=== PATIENT | male | born 1980 | race American Indian/Alaskan Native ===

== ENCOUNTER 2018-04-30 21:30 | Emergency (ER) | payer MEDICAID ==
[2018-04-30 21:37] VITALS: BMI 26.9
[2018-04-30 21:44] VITALS: BP 138/88; PULSE 58; RESP 18; TEMP 98; O2SAT 99
[2018-04-30] MEDS ORDERED: Penicillin G Benzathine 2.4 Mill Unit/4 ml Syr IM ONE (22:02)
--- NOTE | 2018-04-30 22:07 | ED PDOC ---
Arrival/HPI - General Chief Complaint: Medical Clearance Time Seen by Provider: 04/30/18 21:37 Historian: Patient - History of Present Illness Narrative History of Present Illness (Text): 04/30/18 22:04 37 y/o male, no significant pmh, nkda, c/o exposure to syphillis and lip rash x 1 week. Pt. stated that he received a call from the exgirlfriend today, telling him that she has syphilis which he had unprotected sex with him, he would like to be treated for syphilis. Pt. stated that he has painful lip lesion started today as well, no fever or chills, no night sweat, no dizziness, no change in vision, no palpitation, no change in vision, no other medical or psychological complaints. Past Medical History - Provider Review Nursing Documentation Reviewed: Yes - Psychiatric Hx Substance Use: No - Anesthesia Hx Anesthesia: No Family/Social History - Physician Review Nursing Documentation Reviewed: Yes Family/Social History: Unknown Family HX Smoking Status: Never Smoked Hx Alcohol Use: No Hx Substance Use: No Allergies/Home Meds Allergies/Adverse Reactions: Allergies No Known Allergies Allergy (Verified 04/30/18 21:37) Review of Systems - Review of Systems Constitutional: absent: Fatigue, Fevers Eyes: absent: Vision Changes ENT: absent: Hearing Changes Respiratory: absent: SOB, Cough Cardiovascular: absent: Chest Pain Gastrointestinal: absent: Abdominal Pain, Nausea, Vomiting Genitourinary Male: absent: Dysuria, Frequency Musculoskeletal: absent: Arthralgias Skin: Rash, Skin Lesions. absent: Pruritis, Laceration, Abscess, Ulcer, Cellulitis Physical Exam Vital Signs Reviewed: Yes Vital Signs Temp Pulse Resp BP Pulse Ox 04/30/18 21:43 98 F 58 L 18 138/88 99 Temperature: Afebrile Blood Pressure: Normal Pulse: Bradycardic Respiratory Rate: Normal Appearance: Positive for: Well-Appearing, Non-Toxic, Comfortable Pain Distress: Mild Mental Status: Positive for: Alert and Oriented X 3 - Systems Exam Head: Present: Atraumatic, Normocephalic Pupils: Present: PERRL Extroacular Muscles: Present: EOMI Conjunctiva: Present: Normal Mouth: Present: Moist Mucous Membranes Neck: Present: Normal Range of Motion Respiratory/Chest: Present: Clear to Auscultation, Good Air Exchange. No: Respiratory Distress, Accessory Muscle Use Cardiovascular: Present: Regular Rate and Rhythm, Normal S1, S2. No: Murmurs Abdomen: No: Tenderness, Distention, Peritoneal Signs Back: Present: Normal Inspection Upper Extremity: Present: Normal Inspection. No: Cyanosis, Edema Lower Extremity: Present: Normal Inspection. No: Edema Neurological: Present: GCS=15, CN II-XII Intact, Speech Normal Skin: Present: Warm, Dry, Rashes (rt. lower lip region visible vesicular lesion approx. 0.2cm diameter noted with no fluctuant abcess or cellulitis. Bilateral soles noted to have macule brown spot rash noted. ), Normal Color Psychiatric: Present: Alert, Oriented x 3, Normal Insight, Normal Concentration Medical Decision Making ED Course and Treatment: 04/30/18 22:08 -Pt. refused to be tested for other STD and HIV as he would see his own pmd for it. 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 This also appear to be possibly? syphilis post exposure, called the lab and RPR wouldn't be resulted tonight. -Case and plan of care discussed with Dr. Vasquez, he agreed on the plan of care. -Discharge home with valtrex, notify all your sexual partners for the RPR test and STD panel test or prophylatic treatment, return to the ER for any new or worsening signs or symptoms, follow up on the RPR test as well, return to the ER for any new or worsening signs or symptoms. - Medication Orders Current Medication Orders: Discontinued Medications Penicillin G Benzathine (Bicillin L-A Inj) 2,400,000 units IM ONCE ONE; Protocol Stop: 04/30/18 22:03 Valacyclovir HCl (Valtrex) 2 gm PO STAT STA; Protocol Stop: 04/30/18 22:03 - PA / DOCUMENT DESIGN SPECIALIST / Resident Statement /DO has reviewed & agrees with the documentation as recorded. Disposition/Present on Arrival - Present on Arrival Any Indicators Present on Arrival: No History of DVT/PE: No History of Uncontrolled Diabetes: No Urinary Catheter: No History of Decub. Ulcer: No History Surgical Site Infection Following: None - Disposition Have Diagnosis and Disposition been Completed?: Yes Diagnosis: Herpes labialis, Exposure to syphilis Disposition: HOME/ ROUTINE Disposition Time: 22:14 Patient Plan: Discharge Condition: GOOD Additional Instructions: -Discharge home with valtrex, notify all your sexual partners for the RPR test and STD panel test or prophylatic treatment, return to the ER for any new or worsening signs or symptoms, follow up on the RPR test as well, return to the ER for any new or worsening signs or symptoms. Prescriptions: Valacyclovir HCl [Valtrex] 2 tab PO DAILY #2 tablet Referrals: Jeremy Britt MD [Non-Staff] - Follow up with primary Delma Rosario MD [Staff Provider] - Follow up with primary [facility] [Outside] - Follow up with primary Forms: [employer] ([place]ish), WORK NOTE
== END 2018-04-30 22:47 | disposition home or self-care (01) ==
LOC: ED 21:30
DX: B00.1 Herpesviral vesicular dermatitis (principal); Z20.2 Contact with and (suspected) exposure to infections with a predominantly sexual mode of transmission
CPT/HCPCS: 86592; 96372; 99282; J0561

== ENCOUNTER 2018-05-03 20:25 | Emergency (ER) | payer MEDICAID ==
[2018-05-03 21:21] VITALS: TEMP 98.2; BMI 27.9
--- NOTE | 2018-05-03 21:28 | ED PDOC ---
Arrival/HPI - General Time Seen by Provider: 05/03/18 20:31 Historian: Patient - History of Present Illness Narrative History of Present Illness (Text): 05/03/18 21:27 Peter Ospina is a 37 year old male who presents to the Emergency Department complaining of headache. Patient states he has been experiencing a headache for the past few days, states he feels things "crawling" on his scalp with associated itching. Patient was seen by his doctor and recommended a CT Head. Patient denies any fever, chills, nausea, vomiting, neck pain, dizziness, or any other complaints. Symptom Onset: Gradual Symptom Course: Unchanged Activities at Onset: Light Context: Home Past Medical History - Provider Review Nursing Documentation Reviewed: Yes - Psychiatric Hx Substance Use: No - Anesthesia Hx Anesthesia: No Family/Social History - Physician Review Nursing Documentation Reviewed: Yes Family/Social History: Unknown Family HX Smoking Status: Never Smoked Hx Alcohol Use: No Hx Substance Use: No Allergies/Home Meds Allergies/Adverse Reactions: Allergies No Known Allergies Allergy (Verified 04/30/18 21:37) Review of Systems - Physician Review All systems were reviewed & negative as marked: Yes - Review of Systems Constitutional: Normal. absent: Fevers Eyes: Normal ENT: Normal Respiratory: Normal. absent: SOB, Cough Cardiovascular: Normal. absent: Chest Pain Gastrointestinal: Normal. absent: Abdominal Pain, Diarrhea, Nausea, Vomiting Genitourinary Male: Normal. absent: Dysuria, Frequency, Hematuria, Urinary Output Changes Musculoskeletal: Normal. absent: Back Pain, Neck Pain Skin: Other Neurological: Headache. absent: Dizziness Endocrine: Normal Hemo/Lymphatic: Normal Psychiatric: Normal Physical Exam Vital Signs Reviewed: Yes Vital Signs Temp Pulse Resp BP Pulse Ox 05/03/18 21:21 98.2 F 64 16 141/67 99 Temperature: Afebrile Blood Pressure: Normal Pulse: Regular Respiratory Rate: Normal Appearance: Positive for: Well-Appearing, Non-Toxic, Comfortable Pain Distress: None Mental Status: Positive for: Alert and Oriented X 3 - Systems Exam Head: Present: Atraumatic, Normocephalic Pupils: Present: PERRL Extroacular Muscles: Present: EOMI Conjunctiva: Present: Normal Mouth: Present: Moist Mucous Membranes Neck: Present: Normal Range of Motion. No: Meningeal Signs, MIDLINE TENDERNESS, Paraspinal Tenderness Respiratory/Chest: Present: Clear to Auscultation, Good Air Exchange. No: Respiratory Distress, Accessory Muscle Use Cardiovascular: Present: Regular Rate and Rhythm, Normal S1, S2. No: Murmurs Abdomen: No: Tenderness, Distention, Peritoneal Signs Back: Present: Normal Inspection. No: CVA Tenderness, Midline Tenderness, Paraspinal Tenderness Upper Extremity: Present: Normal Inspection. No: Cyanosis, Edema Lower Extremity: Present: Normal Inspection. No: Edema Neurological: Present: GCS=15, CN II-XII Intact, Speech Normal Skin: Present: Warm, Dry, Normal Color. No: Rashes Psychiatric: Present: Alert, Oriented x 3, Normal Insight, Normal Concentration Medical Decision Making ED Course and Treatment: 05/03/18 21:27 Impression: 37 year old male complaining of a headache. Differential Diagnosis included but are not limited to: Plan: -- CT Head w/o contrast -- Reassess and disposition Prior Visits: Notes and results from previous visits were reviewed. On 04/30/2018, pt was seen in the Emergency Department for STI prophylaxis and a lip rash. Pt was discharged home on Valtrex. Progress Notes: 05/03/18 23:18 CT Head Impression: No acute intracranial abnormality. Electronically signed on May 03, 2018 22:41:32 Rocael Plata M.D. - RAD Interpretation Shoe Cutter: Radiologist - Scribe Statement The provider has reviewed the documentation as recorded by the Scribe Shae Quinones All medical record entries made by the Scribe were at my direction and personally dictated by me. I have reviewed the chart and agree that the record accurately reflects my personal performance of the history, physical exam, medical decision making, and the department course for this patient. I have also personally directed, reviewed, and agree with the discharge instructions and disposition. Disposition/Present on Arrival - Present on Arrival Any Indicators Present on Arrival: No History of DVT/PE: No History of Uncontrolled Diabetes: No Urinary Catheter: No History Surgical Site Infection Following: None - Disposition Have Diagnosis and Disposition been Completed?: Yes Diagnosis: Headache, Seborrheic dermatitis of scalp Disposition: HOME/ ROUTINE Disposition Time: 23:30 Patient Plan: Discharge Condition: GOOD Discharge Instructions (ExitCare): Tension Headache (DC), Seborrheic Dermatitis Additional Instructions: Take meds as prescribed/use selsun blue shampoo/follow up with your doctor this week Prescriptions: Naproxen [Naprosyn Tab] 375 mg PO BID PRN #12 tab PRN Reason: Pain, Moderate (4-7) Referrals: Radha Coelho MD [Primary Care Provider] - Follow up with primary
[2018-05-03 23:58] VITALS: BP 138/72; PULSE 72; RESP 17; O2SAT 100
--- NOTE | 2018-05-04 13:15 | CT ---
Date of service: 05/03/2018 PROCEDURE: CT HEAD WITHOUT CONTRAST. HISTORY: headache COMPARISON: None available. TECHNIQUE: Axial computed tomography images were obtained through the head/brain without intravenous contrast. Supplemental Coronal and Sagittal projectections created and reviewed. Radiation dose: Total exam DLP = 1475.98 mGy-cm. This CT exam was performed using one or more of the following dose reduction techniques: Automated exposure control, adjustment of the mA and/or kV according to patient size, and/or use of iterative reconstruction technique. FINDINGS: HEMORRHAGE: No intracranial hemorrhage. BRAIN: No mass effect or edema. No atrophy or chronic microvascular ischemic changes. VENTRICLES: Unremarkable. No hydrocephalus. CALVARIUM: Unremarkable. PARANASAL SINUSES: Unremarkable as visualized. No significant inflammatory changes. MASTOID AIR CELLS: Unremarkable as visualized. No inflammatory changes. OTHER FINDINGS: None. IMPRESSION: No acute intracranial abnormalities. No significant findings to account for the clinical presentation. Concordant results (preliminary interpretation) provided by [facility]. Procedure Completed: 22:14. Preliminary Report: Dictated and Authenticated: 22:41. Final Interpretation: 13:12. May 04, 2018.
== END 2018-05-03 23:58 | disposition home or self-care (01) ==
LOC: ED 20:25
DX: R51 Headache (principal); L21.9 Seborrheic dermatitis, unspecified

== ENCOUNTER 2018-08-04 01:06 | Emergency (ER) | payer MEDICAID ==
[2018-08-04 01:07] VITALS: BMI 27.9
[2018-08-04 01:34] VITALS: TEMP 97.4; O2SAT 99
--- NOTE | 2018-08-04 01:57 | ED PDOC ---
Arrival/HPI - History of Present Illness Narrative History of Present Illness (Text): 08/04/18 01:53 37M complains of "worms in brain". Pt sates the worms are crawling under his scalp and giving him a headache. Pt believes they were transmitted to him from his schizophrenic girlfriend. Pt has been feeling this for a few months, and came to the [place] [facility] department in April for the same issue. Pt de nies chest pain, shortness of breath, fevers, chills, nausea, vomiting. denies eating raw meats. denies visual disturbances Of note last admission, neg Head CT 08/04/18 01:57 Time/Duration: > month Symptom Onset: Gradual Symptom Course: Unchanged Activities at Onset: Rest <Mathieu Lamb - Last Filed: 08/04/18 04:13> <Henri Rai - Last Filed: 08/05/18 10:49> - General Chief Complaint: Psychiatric Evaluation Time Seen by Provider: 08/04/18 01:19 Past Medical History - Provider Review Nursing Documentation Reviewed: Yes - Infectious Disease Hx of Infectious Diseases: None - Psychiatric Hx Substance Use: No - Anesthesia Hx Anesthesia: No <Mathieu Lamb - Last Filed: 08/04/18 04:13> Family/Social History - Physician Review Nursing Documentation Reviewed: Yes Family/Social History: Unknown Family HX Smoking Status: Never Smoked Hx Alcohol Use: No Hx Substance Use: No <Mathieu Lamb - Last Filed: 08/04/18 04:13> Allergies/Home Meds <Mathieu Lamb - Last Filed: 08/04/18 04:13> <Henri Rai - Last Filed: 08/05/18 10:49> Allergies/Adverse Reactions: Allergies No Known Allergies Allergy (Verified 04/30/18 21:37) Review of Systems - Review of Systems Constitutional: Normal. absent: Fatigue, Fevers, Night Sweats Eyes: absent: Vision Changes, Photophobia ENT: absent: Hearing Changes Respiratory: absent: SOB Cardiovascular: absent: Chest Pain Gastrointestinal: absent: Abdominal Pain Genitourinary Male: absent: Dysuria Musculoskeletal: absent: Arthralgias, Back Pain, Neck Pain, Myalgias Skin: absent: Rash Neurological: Headache. absent: Dizziness, Seizure <Mathieu Lamb - Last Filed: 08/04/18 04:13> Physical Exam Vital Signs Temp Pulse Resp BP Pulse Ox 08/04/18 01:32 97.4 F L 62 16 142/88 99 Temperature: Afebrile Blood Pressure: Normal Pulse: Regular Respiratory Rate: Normal Appearance: Positive for: Non-Toxic Pain Distress: Mild Mental Status: Positive for: other (preoccupations) - Systems Exam Head: Present: Atraumatic, Normocephalic Pupils: Present: PERRL. No: Sluggish Extroacular Muscles: Present: EOMI. No: Gaze Palsy Conjunctiva: Present: Normal Mouth: Present: Moist Mucous Membranes Pharnyx: No: ERYTHEMA Neck: Present: Normal Range of Motion. No: Meningeal Signs, MIDLINE TENDERNESS Respiratory/Chest: Present: Clear to Auscultation. No: Wheezes, Rales Cardiovascular: Present: Regular Rate and Rhythm, Normal S1, S2. No: Murmurs Abdomen: No: Tenderness, Distention Neurological: Present: CN II-XII Intact Skin: Present: Warm, Dry. No: Rashes Psychiatric: Present: Delusional (preoccupied with worms) <Mathieu Lamb - Last Filed: 08/04/18 04:13> Vital Signs Temp Pulse Resp BP Pulse Ox 08/04/18 05:40 67 18 137/79 99 08/04/18 01:32 97.4 F L 62 16 142/88 99 - Systems Exam Back: Present: Normal Inspection. No: CVA Tenderness, Midline Tenderness Upper Extremity: Present: Normal Inspection Lower Extremity: Present: Normal Inspection Neurological: Present: GCS=15, Speech Normal, Motor Func Grossly Intact, Normal Sensory Function, Normal Cerebellar Funct Psychiatric: Present: Alert, Oriented x 3, Normal Concentration. No: Agitated <Henri Rai - Last Filed: 08/05/18 10:49> Medical Decision Making ED Course and Treatment: 08/04/18 02:03 #Delusional CT head w/o cont CBC, CMP, Urinalysis, U Tox, UDS 08/04/18 02:06 - Lab Interpretations Narrative Lab Interpretation (Text): 08/04/18 03:20 No eosinophilia seen on CBC, highly unlikely parasitic process - RAD Interpretation Radiology Orders: 08/04/18 01:51 HEAD W/O CONTRAST [CT] Stat <Mathieu Lamb - Last Filed: 08/04/18 04:13> - Lab Interpretations Lab Results: 08/04/18 02:05 08/04/18 02:05 Lab Results 08/04/18 02:15: Urine Opiates Screen Negative, Urine Methadone Screen Negative, Ur Barbiturates Screen Negative, Ur Phencyclidine Scrn Negative, Ur Amphetamines Screen Negative, U Benzodiazepines Scrn Negative, U Oth Cocaine Metabols Negative, U Cannabinoids Screen Negative 08/04/18 02:15: Urine Color Yellow, Urine Appearance Sl cloudy, Urine pH 6.0, Ur Specific [place] >= 1.030, Urine Protein Negative, Urine Glucose (UA) Negative, Urine Ketones Negative, Urine Blood Moderate H, Urine Nitrate Negative, Urine Bilirubin Negative, Urine Urobilinogen 0.2, Ur Leukocyte Esterase Negative, Urine RBC 10 - 15 H, Urine WBC 0 - 2, Ur Epithelial Cells 0 - 2, Urine Bacteria Rare 08/04/18 02:05: Alcohol, Quantitative < 10 08/04/18 02:05: Salicylates < 1 L, Acetaminophen < 10.0 L 08/04/18 02:05: Sodium 141, Potassium 4.0, Chloride 103, Carbon Dioxide 29, Anion Gap 13, BUN 16, Creatinine 0.8, Est GFR ( Amer) > 60, Est GFR (Non- Af Amer) > 60, Random Glucose 93, Calcium 9.3, Magnesium 1.7, Total Bilirubin 1.2, AST 36, ALT 35, Alkaline Phosphatase 75, Total Protein 8.0, Albumin 4.6, Globulin 3.4, Albumin/Globulin Ratio 1.3 08/04/18 02:05: WBC 5.3, RBC 5.18, Hgb 15.3, Hct 46.5, MCV 89.8, MCH 29.5, MCHC 32.9, RDW 12.7, Plt Count 181, MPV 10.7, Gran % 45.4 L, Lymph % (Auto) 47.6 H, [place] % (Auto) 5.3, Eos % (Auto) 1.3 L, Baso % (Auto) 0.4, Gran # 2.40, Lymph # (Auto) 2.5, [place] # (Auto) 0.3, Eos # (Auto) 0.1, Baso # (Auto) 0.02 - RAD Interpretation Radiology Orders: 08/04/18 01:51 HEAD W/O CONTRAST [CT] Stat <Henri Rai - Last Filed: 08/05/18 10:49> - PA / NON DESTRUCTIVE TESTING TECHNICIAN / Resident Statement MD/DO has examined the patient and agrees with the treatment plan. (37 year old male w/ out recent travel hx, or diet of raw pork / beef / fish p/w concern for tapeworm in head and headache. MURRIETA is not worst of life and not sudden in onset >1 month. Described MURRIETA as a crawling sensation in his head throught his body but no FND. Normal neuro exam. No SI/HI or anxiety. Recent visit w/ recurrent complaitns. NEgative CT and pain improved and resolved in ED. Seen by psych and cleared for d/c. Eosinophilia negative, CT negative unlikely parasitic process. No indication of SAH. No trauma or fall. Given resoltution of pain, instructed pt to follow up w/ clinic and ID specialist from clinic. He denies any rashes or penile d/c.) <Henri Rai - Last Filed: 08/05/18 10:49> Disposition/Present on Arrival - Present on Arrival Any Indicators Present on Arrival: No History of DVT/PE: No History of Uncontrolled Diabetes: No Urinary Catheter: No History of Decub. Ulcer: No History Surgical Site Infection Following: None - Disposition Have Diagnosis and Disposition been Completed?: Yes Disposition Time: 04:14 Patient Plan: Discharge <Mathieu Lamb - Last Filed: 08/04/18 04:13> <Henri Rai - Last Filed: 08/05/18 10:49> - Disposition Diagnosis: Somatic preoccupation Disposition: HOME/ ROUTINE Condition: STABLE Additional Instructions: CARLOS SABA, thank you for letting us take care of you today. Your provider was Henri Rai and you were treated for migraine. The emergency medical care you received today was directed at your acute symptoms. If you were prescribed any medication, please fill it and take as directed. It may take several days for your symptoms to resolve. Return to the Emergency Department if your symptoms worsen, do not improve, or if you have any other problems. Please contact your doctor or call one of the physicians/clinics you have been referred to that are listed on the Patient Visit Information form that is included in your discharge packet. Bring any paperwork you were given at discharge with you along with any medications you are taking to your follow up visit. Our treatment cannot replace ongoing medical care by a primary care provider outside of the emergency department. Thank you for allowing the [facility] team to be part of your care today. If you had an X-Ray or CT scan: A Radiologist will review the ED reading if any change in treatment is needed we will contact you. If you had a blood, urine, or wound culture: It will take several days for the results, if any change in treatment is needed we will contact you. If you had an STI test: It will take 48 hours for the results. Please call after 1 week if you have not heard back. Referrals: Vannessa Lainez MD [Medical Doctor] - Follow up with primary Forms: [employer] ([place])
[2018-08-04 02:18] LABS: BASO # 0.02 K/mm3 (0.0-2.0); BASO % 0.4 % (0.0-3.0); EOS # 0.1 (0.0-0.7); EOS % 1.3 % (1.5-5.0); GRAN # 2.4 (1.4-6.5); GRAN % 45.4 % (50.0-68.0); HEMOGLOBIN 15.3 g/dL (14.0-18.0); LYMPH # 2.5 (1.2-3.4); LYMPH % 47.6 % (22.0-35.0); MEAN CELL VOLUME 89.8 fl (80.0-105.0); MEAN CORPUSCULAR HEMOGLOBIN 29.5 pg (25.0-35.0); MEAN CORPUSCULAR HGB CONC 32.9 g/dl (31.0-37.0); MEAN PLATELET VOLUME 10.7 fl (7.0-11.0); MONO # 0.3 (0.1-0.6); MONO % 5.3 % (1.0-6.0); RBC 5.18 10^6/uL (3.5-6.1); RED CELL DISTRIBUTION WIDTH 12.7 % (11.5-14.5); WHITE BLOOD COUNT 5.3 10^3/uL (4.5-11.0)
[2018-08-04 02:32] LABS: URINE BILIRUBIN NEGATIVE (NEGATIVE); URINE BLOOD MODERATE (NEGATIVE); URINE GLUCOSE (UA) NEGATIVE (NEGATIVE); URINE LEUKOCYTE ESTERASE NEGATIVE Leu/uL (NEGATIVE); URINE PROTEIN NEGATIVE mg/dL (<30 mg/dL); URINE UROBILINOGEN 0.2 E.U./dL (<1 E.U./dL)
[2018-08-04 02:36] LABS: ACETAMINOPHEN < 10.0 ug/ml (10.0-20.0); BLOOD UREA NITROGEN 16 mg/dL (7-21); CALCIUM 9.3 mg/dL (8.4-10.5); GFR NON-AFRICAN AMERICAN > 60; SALICYLATE < 1 mg/dL (2.0-20.0)
[2018-08-04 02:36] LABS: URINE APPEARANCE SL CLOUDY (CLEAR); URINE COLOR YELLOW (YELLOW)
[2018-08-04 02:42] LABS: URINE BACTERIA RARE /hpf; URINE EPITHELIAL CELLS 0 - 2 /hpf (0-5); URINE WBC 0 - 2 /hpf (0-6)
[2018-08-04 02:59] LABS: ALB/GLOB RATIO 1.3 (1.1-1.8); ALBUMIN 4.6 g/dL (3.0-4.8); ALT/SGPT 35 U/L (7-56); AST/SGOT 36 U/L (17-59)
[2018-08-04 02:59] LABS: BARBITURATES, UR NEGATIVE (NEGATIVE); BENZODIAZEPINES, UR NEGATIVE (NEGATIVE); OPIATES, UR NEGATIVE (NEGATIVE); PHENCYCLIDINE, UR NEGATIVE (NEGATIVE)
[2018-08-04 05:43] VITALS: BP 137/79; PULSE 67; RESP 18
--- NOTE | 2018-08-04 12:34 | CT ---
Date of service: 08/04/2018 PROCEDURE: CT HEAD WITHOUT CONTRAST. HISTORY: "worms in brain" COMPARISON: CT head dated 05/03/2018. TECHNIQUE: Axial computed tomography images were obtained through the head/brain without intravenous contrast. Radiation dose: Total exam DLP = 922.88 mGy-cm. This CT exam was performed using one or more of the following dose reduction techniques: Automated exposure control, adjustment of the mA and/or kV according to patient size, and/or use of iterative reconstruction technique. FINDINGS: HEMORRHAGE: No intracranial hemorrhage. BRAIN: No mass effect or edema. No atrophy or chronic microvascular ischemic changes. VENTRICLES: Unremarkable. No hydrocephalus. CALVARIUM: Unremarkable. PARANASAL SINUSES: Unremarkable as visualized. No significant inflammatory changes. MASTOID AIR CELLS: Unremarkable as visualized. No inflammatory changes. OTHER FINDINGS: Dysconjugate gaze. IMPRESSION: Normal CT of the Head.
--- NOTE | 2018-08-04 20:33 | CARD ---
APPROVED REPORT Date of service: 08/04/2018 EKG Measurement Heart [id number] <Conclusion> Normal sinus rhythm ST elevation, consider early repolarization Borderline ECG
== END 2018-08-04 05:40 | disposition home or self-care (01) ==
LOC: ED 01:06
DX: F45.9 Somatoform disorder, unspecified (principal)

== ENCOUNTER 2018-10-13 07:53 | Emergency (ER) | payer MEDICAID, BC | END 2018-10-13 09:48 | disposition home or self-care (01) | LOC: ED 07:53 ==

== ENCOUNTER 2018-11-15 15:49 | Emergency (ER) | payer MEDICAID ==
[2018-11-15 16:11] VITALS: BMI 27.7
[2018-11-15 16:41] VITALS: BP 129/83; PULSE 63; RESP 16; O2SAT 98
--- NOTE | 2018-11-15 16:43 | ED PDOC ---
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 He notes having an MRI disk with him which indicates the larvae in his brain. He notes intermittent headache over the past year as well as "seizures" in which he remembers shaking bilateral movements of his body. He notes he is not on any medications. He notes a remote history of possible syphillis exposure but denies any rashes, AMS or penile discharge or rashes / ulcers. No testicular pain or penil pain. He denies any recent sexual activity. He denies any recent travel abroad, or eating raw meat. Pt notes that last year he broke up with his girlfriend and came to ED because she told him that she had given him neurocystercosis after kissing him. He denies any sob, dark or bloody stool, eating raw meat, chest pain, abdominal pain, constipation or diarrhea. He denies any trauma / fall, neck stiffness, fever, chills or night sweats. No other complaints. Past Medical History - Infectious Disease Hx of Infectious Diseases: None - Psychiatric Hx Substance Use: No - Anesthesia Hx Anesthesia: No Family/Social History Family/Social History: Unknown Family HX Smoking Status: Never Smoked Hx Alcohol Use: No Hx Substance Use: No Allergies/Home Meds Allergies/Adverse Reactions: Allergies No Known Allergies Allergy (Verified 10/13/18 08:00) Home Medications: Home Meds Medication Instructions Recorded Confirmed No Known Home Med 10/13/18 11/15/18 Review of Systems - Review of Systems Constitutional: absent: Fatigue, Weight Change, Fevers, Night Sweats Eyes: absent: Vision Changes, Photophobia, Eye Pain ENT: absent: Hearing Changes, Tinnitus, TMJ Pain, Voice Changes Respiratory: absent: SOB, Cough, Sputum Cardiovascular: absent: Chest Pain, Palpitations, Edema Gastrointestinal: absent: Abdominal Pain, Stool Changes, Constipation Genitourinary Male: absent: Dysuria, Frequency, Hematuria Musculoskeletal: absent: Arthralgias, Back Pain, Neck Pain Skin: absent: Rash, Pruritis, Skin Lesions Neurological: Headache (not worst of life, not sudden in onset). absent: Dizziness, Focal Weakness, Gait Changes, Speech Changes, Facial Droop, Disequilibrium Psychiatric: absent: Anxiety, Depression, Suicidal Ideation Physical Exam Vital Signs Reviewed: Yes Vital Signs Pulse Resp BP Pulse Ox 11/15/18 16:33 63 16 129/83 98 11/15/18 15:50 60 16 131/45 L 97 Temperature: Afebrile Blood Pressure: Normal Pulse: Regular Respiratory Rate: Normal Appearance: Positive for: Well-Appearing, Non-Toxic Pain Distress: None Mental Status: Positive for: Alert and Oriented X 3 - Systems Exam Head: Present: Atraumatic, Normocephalic. No: Tenderness, Contusion, Swelling, Ecchymosis Pupils: Present: PERRL Extroacular Muscles: Present: EOMI Conjunctiva: Present: Normal Ears: Present: Normal, NORMAL TM Mouth: Present: Moist Mucous Membranes Pharnyx: Present: Normal. No: ERYTHEMA, EXUDATE Nose (External): Present: Atraumatic. No: Abrasion, Contusion Nose (Internal): Present: Normal Inspection, No Active Bleeding, Moist. No: Engorged Neck: Present: Normal Range of Motion. No: Meningeal Signs, MIDLINE TENDERNESS, JVD, Lymphadenopathy, Bruit Respiratory/Chest: Present: Clear to Auscultation, Good Air Exchange. No: Respiratory Distress Cardiovascular: Present: Regular Rate and Rhythm, Normal S1, S2. No: Murmurs, Irregular Rhythm Abdomen: Present: Normal Bowel Sounds. No: Tenderness, Distention, Peritoneal Signs, Rebound, Guarding, Rovsing's Sign Present Back: Present: Normal Inspection. No: CVA Tenderness, Midline Tenderness Upper Extremity: Present: Normal Inspection, Normal ROM, NORMAL PULSES. No: Cyanosis, Edema Lower Extremity: Present: Normal Inspection, NORMAL PULSES. No: Edema, CALF TENDERNESS Neurological: Present: GCS=15, CN II-XII Intact, Speech Normal, Motor Func Grossly Intact, Normal Sensory Function, Normal Cerebellar Funct, Gait Normal, Memory Normal Skin: Present: Warm, Dry. No: Rashes Psychiatric: Present: Alert, Oriented x 3, Normal Insight, Normal Concentration, Normal Affect, Normal Mood. No: Anxious, Agitated, Depressed Mood Medical Decision Making ED Course and Treatment: 37 yr old male p/w concern for neurocystericosis. No risk factors noted on HPI. No abnl skin findings on exam. Pt was seen previously for similiar complaint 4 months prior. No fall or trauma. Mild headache on exam, not worse of life and without any FND. No tongue biting or enuresis. No fall or trauma noted. No SI / HI, pt denies any hallucinations. 11/15/18 16:45 appreciate consult w/ Maria L Gil : who notes that the patient was not sent in for evaluation of brain cysts or neurocystericosis. Pt had an unremarkable MRI for parasites. He notes that the patient had chronic white matter changes. He notes that he knows the patient very well. MRI reviewed myself: no parasitic lesions noted. Previous visits with negative CTs. Will seek basic labs and likely seek reassessment of MURRIETA. 11/15/18 17:10 Repeat neuro exam unremarkable, steady gait, AOX3, MAEW in NAD Pt seek to leave: I endorsed pending labs and imaging and patient notes that he has work commitments which he must attend to. I endorsed pending labs once again and noted possible or disability if labs are abnormal and the patient decides to leave. He notes that he must leave and understands the risks. Given good capacity and understanding of disability / pt signed out AMA. - Medication Orders Current Medication Orders: Discontinued Medications Acetaminophen (Tylenol 325mg Tab) 325 mg PO STAT STA Stop: 11/15/18 16:35 Disposition/Present on Arrival - Present on Arrival Any Indicators Present on Arrival: No History of DVT/PE: No History of Uncontrolled Diabetes: No Urinary Catheter: No History of Decub. Ulcer: No History Surgical Site Infection Following: None - Disposition Have Diagnosis and Disposition been Completed?: Yes Diagnosis: Headache Disposition: AGAINST MEDICAL ADVICE Disposition Time: 16:53 Patient Problems: Current Active Problems Problem Status Onset Headache Acute Condition: STABLE Additional Instructions: CARLOS SABA, thank you for letting us take care of you today. Your provider was Henri Rai and you were treated for PARASITE OF THE BRAIN, FATIGUE, DIZZINESS, SEIZURE. The emergency medical care you received today was directed at your acute symptoms. If you were prescribed any medication, please fill it and take as directed. It may take several days for your symptoms to resolve. Return to the Emergency Department if your symptoms worsen, do not improve, or if you have any other problems. Please contact your doctor or call one of the physicians/clinics you have been referred to that are listed on the Patient Visit Information form that is included in your discharge packet. Bring any paperwork you were given at discharge with you along with any medications you are taking to your follow up visit. Our treatment cannot replace ongoing medical care by a primary care provider outside of the emergency department. Thank you for allowing the [facility] team to be part of your care today. If you had an X-Ray or CT scan: A Radiologist will review the ED reading if any change in treatment is needed we will contact you. If you had a blood, urine, or wound culture: It will take several days for the results, if any change in treatment is needed we will contact you. If you had an STI test: It will take 48 hours for the results. Please call after 1 week if you have not heard back. Referrals: PCP,NO [Primary Care Provider] - Follow up with primary Vannessa Lainez MD [Medical Doctor] - Follow up with primary Jeramie Luque MD [Staff Provider] - Follow up with primary [facility] [Outside] - Follow up with primary [facility] [Outside] - Follow up with primary [facility] [Outside] - Follow up with primary Forms: [facility] (Serbian)
[2018-11-15 17:10] LABS: BASO # 0.02 K/mm3 (0.0-2.0); BASO % 0.4 % (0.0-3.0); EOS # 0.1 (0.0-0.7); EOS % 2.1 % (1.5-5.0); HEMOGLOBIN 15.2 g/dL (14.0-18.0); LYMPH # 2.6 (1.2-3.4); LYMPH % 53.2 % (22.0-35.0); MEAN CELL VOLUME 90.1 fl (80.0-105.0); MEAN CORPUSCULAR HEMOGLOBIN 29.4 pg (25.0-35.0); MEAN CORPUSCULAR HGB CONC 32.6 g/dl (31.0-37.0); MEAN PLATELET VOLUME 10.6 fl (7.0-11.0); MONO # 0.3 (0.1-0.6); MONO % 5.8 % (1.0-6.0); RBC 5.17 10^6/uL (3.5-6.1); RED CELL DISTRIBUTION WIDTH 12.6 % (11.5-14.5); WHITE BLOOD COUNT 4.9 10^3/uL (4.5-11.0)
[2018-11-15 17:21] LABS: ALB/GLOB RATIO 1.3 (1.1-1.8); ALBUMIN 4.2 g/dL (3.0-4.8); BLOOD UREA NITROGEN 13 mg/dL (7-21); CALCIUM 9.4 mg/dL (8.4-10.5); GFR NON-AFRICAN AMERICAN > 60
[2018-11-15 17:23] LABS: ALT/SGPT 20 U/L (7-56); AST/SGOT 33 U/L (17-59)
== END 2018-11-15 17:04 | disposition left against medical advice (07) ==
LOC: ED 15:49
DX: R51 Headache (principal)

== ENCOUNTER 2018-11-27 22:28 | Observation (INO) | payer MEDICAID ==
[2018-11-27 22:28] VITALS: BMI 27.7
[2018-11-27 22:53] VITALS: PULSE 66; RESP 18; TEMP 97.7
--- NOTE | 2018-11-27 23:20 | ED PDOC ---
Arrival/HPI - General Chief Complaint: GI Problem Time Seen by Provider: 11/27/18 22:55 Historian: Patient - History of Present Illness Narrative History of Present Illness (Text): 11/27/18 23:20 Peter Ospina is a 37 year old male, with no significant past medical history, who presents to the ED complaining of abdominal pain. Patient states he began experiencing upper abdominal pain with associated nausea and vomiting after eati ng yesterday. Patient noted some blood streaked emesis this evening. Patient denies any fever, chills, chest pain, shortness of breath, diarrhea, urinary symptoms, back pain, neck pain, headache, dizziness, or any other complaints. Symptom Onset: Gradual Symptom Course: Unchanged Activities at Onset: Light Context: Home Past Medical History - Provider Review Nursing Documentation Reviewed: Yes - Infectious Disease Hx of Infectious Diseases: None - Psychiatric Hx Substance Use: No - Anesthesia Hx Anesthesia: No Family/Social History - Physician Review Nursing Documentation Reviewed: Yes Family/Social History: Unknown Family HX Smoking Status: Never Smoked Hx Alcohol Use: No Hx Substance Use: No Allergies/Home Meds Allergies/Adverse Reactions: Allergies No Known Allergies Allergy (Verified 10/13/18 08:00) Home Medications: Home Meds Medication Instructions Recorded Confirmed No Known Home Med 10/13/18 11/28/18 Review of Systems - Physician Review All systems were reviewed & negative as marked: Yes - Review of Systems Constitutional: Normal. absent: Fevers Eyes: Normal ENT: Normal Respiratory: Normal. absent: SOB, Cough Cardiovascular: Normal. absent: Chest Pain Gastrointestinal: Abdominal Pain, Nausea, Vomiting. absent: Diarrhea Genitourinary Male: Normal. absent: Dysuria, Frequency, Hematuria, Urinary Output Changes Musculoskeletal: Normal. absent: Back Pain, Neck Pain Skin: Normal. absent: Rash Neurological: Normal. absent: Headache, Dizziness Endocrine: Normal Hemo/Lymphatic: Normal Psychiatric: Normal Physical Exam Vital Signs Reviewed: Yes Vital Signs Temp Pulse Resp BP Pulse Ox 11/27/18 22:52 97.7 F 66 18 132/74 97 Temperature: Afebrile Blood Pressure: Normal Pulse: Regular Respiratory Rate: Normal Appearance: Positive for: Well-Appearing, Non-Toxic, Comfortable Pain Distress: None Mental Status: Positive for: Alert and Oriented X 3 - Systems Exam Head: Present: Atraumatic, Normocephalic Pupils: Present: PERRL Extroacular Muscles: Present: EOMI Conjunctiva: Present: Normal Mouth: Present: Moist Mucous Membranes Neck: Present: Normal Range of Motion Respiratory/Chest: Present: Clear to Auscultation, Good Air Exchange. No: Respiratory Distress, Accessory Muscle Use Cardiovascular: Present: Regular Rate and Rhythm, Normal S1, S2. No: Murmurs Abdomen: No: Tenderness, Distention, Peritoneal Signs Back: Present: Normal Inspection Upper Extremity: Present: Normal Inspection. No: Cyanosis, Edema Lower Extremity: Present: Normal Inspection. No: Edema Neurological: Present: GCS=15, CN II-XII Intact, Speech Normal Skin: Present: Warm, Dry, Normal Color. No: Rashes Psychiatric: Present: Alert, Oriented x 3, Normal Insight, Normal Concentration Medical Decision Making ED Course and Treatment: 11/27/18 23:20 Impression: 37 year old male complaining of abdominal pain, nausea, and vomiting. Plan: -- Labs, lipase -- Urinalysis -- IV fluids -- Zofran -- Pepcid -- Protonix -- Reassess and disposition Prior Visits: Notes and results from previous visits were reviewed. Progress Notes: - Scribe Statement The provider has reviewed the documentation as recorded by the Clemente Quinones Provider Scribe Attestation: All medical record entries made by the Scribe were at my direction and personally dictated by me. I have reviewed the chart and agree that the record accurately reflects my personal performance of the history, physical exam, medical decision making, and the department course for this patient. I have also personally directed, reviewed, and agree with the discharge instructions and disposition. Disposition/Present on Arrival - Present on Arrival Any Indicators Present on Arrival: No History of DVT/PE: No History of Uncontrolled Diabetes: No Urinary Catheter: No History of Decub. Ulcer: No History Surgical Site Infection Following: None - Disposition Have Diagnosis and Disposition been Completed?: Yes Diagnosis: Upper gastrointestinal hemorrhage Disposition: HOSPITALIZED Disposition Time: 02:00 Condition: FAIR
[2018-11-27] MEDS ORDERED: Sodium Chloride 0.9% 1,000 ML IV STA (23:28)
[2018-11-27 23:55] LABS: BASO # 0.03 K/mm3 (0.0-2.0); BASO % 0.7 % (0.0-3.0); EOS # 0.1 (0.0-0.7); EOS % 2.6 % (1.5-5.0); HEMOGLOBIN 14.6 g/dL (14.0-18.0); LYMPH # 1.8 (1.2-3.4); LYMPH % 41.9 % (22.0-35.0); MEAN CORPUSCULAR HEMOGLOBIN 29.3 pg (25.0-35.0); MEAN CORPUSCULAR HGB CONC 32.5 g/dl (31.0-37.0); MEAN PLATELET VOLUME 10.7 fl (7.0-11.0); MONO # 0.4 (0.1-0.6); MONO % 8.3 % (1.0-6.0); RBC 4.99 10^6/uL (3.5-6.1); RED CELL DISTRIBUTION WIDTH 12.6 % (11.5-14.5); WHITE BLOOD COUNT 4.2 10^3/uL (4.5-11.0)
[2018-11-28 00:04] LABS: INR 1.25; PARTIAL THROMBOPLASTIN TIME 35.4 Seconds (26.9-38.3); PROTHROMBIN TIME 13.9 SECONDS (9.4-12.5)
[2018-11-28 00:25] LABS: ALB/GLOB RATIO 1.3 (1.1-1.8); ALBUMIN 4.1 g/dL (3.0-4.8); BLOOD UREA NITROGEN 16 mg/dL (7-21); CALCIUM 8.9 mg/dL (8.4-10.5); GFR NON-AFRICAN AMERICAN > 60
[2018-11-28 00:26] LABS: ALT/SGPT 27 U/L (7-56); AST/SGOT 33 U/L (17-59); LIPASE 28 U/L (23-300)
--- NOTE | 2018-11-28 02:19 | CP.PCM.HP ---
<CaesarManan - Last Filed: 11/28/18 04:25> History of Present Illness - History of Present Illness History of Present Illness: Manan Maynard DO PGY-1 H&P Note for Dr. Milena Thomas:nausea/vomiting/diarrhea x1 day 37 y/o male with no significant PMH presents to the ED with one day h/o nause a/vomiting/hemetemesis? watery diarrhea and epigastric pain. Patient reports visiting [place] for 10 days and [place] ago. He reports eating [place] from [place] which he believes it was contaminated? Patient symptoms resolved but he believes that he has something in his stomach and wants to do endoscopy. He denied NSAID use, symptoms of GERD, prior epigastric pain weight loss. He denied chest pain, palpitations, cough, urinary symptoms, headache, dizziness, blurry vision. 12 points ROS reviewed and otherwise negative PMHx: denied PSHx: none FH: non contributory Social Hx: denied alcohol, smoking or illicit drug use All:NKDA Meds: none Present on Admission - Present on Admission Any Indicators Present on Admission: No Past Patient History - Infectious Disease Hx of Infectious Diseases: None - Past Social History Smoking Status: Never Smoked - PSYCHIATRIC Hx Substance Use: No - SURGICAL HISTORY Hx Surgeries: No - ANESTHESIA Hx Anesthesia: No Meds Allergies/Adverse Reactions: Allergies Allergy/AdvReac Type Severity Reaction Status Date / Time No Known Allergies Allergy Verified 10/13/18 08:00 Physical Exam - Constitutional Appears: Well, Non-toxic, Toxic - Head Exam Head Exam: ATRAUMATIC, NORMAL INSPECTION, NORMOCEPHALIC - Eye Exam Eye Exam: EOMI, Normal appearance, PERRL Pupil Exam: NORMAL ACCOMODATION, PERRL - ENT Exam ENT Exam: Mucous Membranes Moist, Normal Exam - Neck Exam Neck exam: Positive for: Normal Inspection - Respiratory Exam Respiratory Exam: Clear to Auscultation Bilateral, NORMAL BREATHING PATTERN - Cardiovascular Exam Cardiovascular Exam: REGULAR RHYTHM - GI/Abdominal Exam GI & Abdominal Exam: Normal Bowel Sounds, Soft. absent: Tenderness Additional comments: mild epigastric and RUQ tenderness to palpate - Extremities Exam Extremities exam: Positive for: normal inspection - Back Exam Back exam: NORMAL INSPECTION - Neurological Exam Neurological exam: Alert, CN II-XII Intact, Normal Gait, Oriented x3, Reflexes Normal - Psychiatric Exam Psychiatric exam: Normal Affect, Normal Mood - Skin Skin Exam: Dry, Intact, Normal Color, Warm Results - Vital Signs Recent Vital Signs: Last Vital Signs Temp 97.7 F 11/27/18 22:52 Pulse 66 11/27/18 22:52 Resp 18 11/27/18 22:52 BP 132/74 11/27/18 22:52 Pulse Ox 97 11/27/18 22:52 - Labs Result Diagrams: 11/27/18 23:48 11/27/18 23:48 Labs: Laboratory Results - last 24 hr 11/27/18 11/27/18 11/27/18 23:48 23:48 23:48 WBC 4.2 L RBC 4.99 Hgb 14.6 Hct 44.9 MCV 90.0 MCH 29.3 MCHC 32.5 RDW 12.6 Plt Count 199 MPV 10.7 Neut % (Auto) 46.5 L Lymph % (Auto) 41.9 H [place] % (Auto) 8.3 H Eos % (Auto) 2.6 Baso % (Auto) 0.7 Lymph # (Auto) 1.8 [place] # (Auto) 0.4 Eos # (Auto) 0.1 Baso # (Auto) 0.03 Absolute Neuts (auto) 1.95 PT 13.9 H INR 1.25 APTT 35.4 Sodium 139 Potassium 4.1 Chloride 104 Carbon Dioxide 27 Anion Gap 12 BUN 16 Creatinine 1.1 Est GFR ( Amer) > 60 Est GFR (Non-Af Amer) > 60 Random Glucose 91 Calcium 8.9 Magnesium 1.6 L Total Bilirubin 0.7 AST 33 ALT 27 Alkaline Phosphatase 75 Total Protein 7.2 Albumin 4.1 Globulin 3.1 Albumin/Globulin Ratio 1.3 Lipase 28 Assessment & Plan - Assessment and Plan (Free Text) Assessment: 37 y/o male presented with nausea, vomiting with hematemesis, diarrhea x2 days Plan: Patient signed AMA shortly after arriving to med/surg unit. Risks and benefits explained in details, patient understood. Patient is AAO x3 and able to make decision. <Logan Abbott - Last Filed: 11/28/18 11:05> Results - Vital Signs Recent Vital Signs: Last Vital Signs Temp 97.7 F 11/27/18 22:52 Pulse 66 11/28/18 01:12 Resp 18 11/28/18 01:12 BP 130/72 11/28/18 01:12 Pulse Ox 98 11/28/18 01:12 - Labs Result Diagrams: 11/27/18 23:48 11/27/18 23:48 Labs: Laboratory Results - last 24 hr 11/27/18 11/27/18 11/27/18 23:48 23:48 23:48 WBC 4.2 L RBC 4.99 Hgb 14.6 Hct 44.9 MCV 90.0 MCH 29.3 MCHC 32.5 RDW 12.6 Plt Count 199 MPV 10.7 Neut % (Auto) 46.5 L Lymph % (Auto) 41.9 H [place] % (Auto) 8.3 H Eos % (Auto) 2.6 Baso % (Auto) 0.7 Lymph # (Auto) 1.8 [place] # (Auto) 0.4 Eos # (Auto) 0.1 Baso # (Auto) 0.03 Absolute Neuts (auto) 1.95 PT 13.9 H INR 1.25 APTT 35.4 Sodium 139 Potassium 4.1 Chloride 104 Carbon Dioxide 27 Anion Gap 12 BUN 16 Creatinine 1.1 Est GFR ( Amer) > 60 Est GFR (Non-Af Amer) > 60 Random Glucose 91 Calcium 8.9 Magnesium 1.6 L Total Bilirubin 0.7 AST 33 ALT 27 Alkaline Phosphatase 75 Total Protein 7.2 Albumin 4.1 Globulin 3.1 Albumin/Globulin Ratio 1.3 Lipase 28 Attending/Attestation - Attestation I have personally seen and examined this patient.: Yes I have fully participated in the care of the patient.: Yes I have reviewed all pertinent clinical information: Yes Notes (Text): 11/28/18 11:04 Patient was seen when he was in the room # 578-02 with when he wanted to sign out AMA. Convinced him to stay.He told that he would think over staying. Medical record was reviewed. Agree with history, physical examination and plan.
[2018-11-28] MEDS ORDERED: Magnesium Sulfate 2 gm/50 ml 2 GM/50 ML BAG IVPB ONE (02:21)
[2018-11-28 03:12] VITALS: BP 130/72; O2SAT 98
--- NOTE | 2018-11-28 12:34 | RAD ---
Date of service: 11/28/2018 HISTORY: Gastrointestinal bleed. COMPARISON: No prior. FINDINGS: LUNGS: No active pulmonary disease. PLEURA: No significant pleural effusion identified, no pneumothorax apparent. CARDIOVASCULAR: No atherosclerotic calcification present Normal. OSSEOUS STRUCTURES: No significant abnormalities. VISUALIZED UPPER ABDOMEN: Normal. OTHER FINDINGS: None. IMPRESSION: No active disease.
== END 2018-11-28 04:00 | disposition left against medical advice (07) ==
LOC: ED 22:28 → ERH 11-28 01:54 → 5RSO 11-28 03:06
PROVIDERS: ADMIT Internal Medicine; ATTEND Internal Medicine
DX: K92.0 Hematemesis (principal); R19.7 Diarrhea, unspecified
CPT/HCPCS: 71045; 80053; 83690; 83735; 85025; 85610; 85730; 96365; 96375; 99284; C9113; G0378; J2405; J7030